=== PATIENT | male | born 1995 | race Caucasian/White ===

== ENCOUNTER 2017-01-01 01:34 | Emergency (ER) | payer OTHER ==
[~2017-01-01 01:34] MED LIST: AUGMENTIN PO; LINZESS290 MCG PO; MARY'S MAGIC MOUTH PO; MOTRIN400 MG PO; NO MEDICATIONS; NORCO1 TAB 10/3 PO; ROBAXIN PO
[2017-01-23] MEDS ORDERED: ASPIRIN81 MG PO (11:25)
== END 2017-01-01 03:15 | disposition home or self-care (01) ==
LOC: SED 01:34
DX: K56.41 Fecal impaction (principal)
CPT/HCPCS: 99283

== ENCOUNTER 2017-01-23 11:51 | Emergency (ER) | payer OTHER ==
--- NOTE | ~2017-01-23 | CT14 ---
[facility] A Service of [facility] & [facility] RADIOLOGY TEXT RESULTS PATIENT: HERMELINDA PHILLIPS LOCATION: SED : [birth year] UNIT #: [id number] AGE: [address]: Barry Valadez DO SEX: M ORDER DR: [id number] [place] [id number] E MR#: [id number] Acc #: [id number] NAME: HERMELINDA PHILLIPS : 1995 SEX: M STUDY DATE/TIME: 01/23/2017 12:59 UNIT: SED ROOM: STUDY DESCRIPTION: CT Angio Abdomen and Pelvis Attending Physician: Barry Valadez Referring Physician: Barry Valadez Ordering Physician: Barry Valadez Primary Care Physician: No Primary Care Physician MEDICAL IMAGING REPORT This report is preliminary unless electronic signature is present. EXAM CTA abdomen and pelvis 01/23/2017 Result text under order number ending [id number] CTA chest, abdomen and pelvis 01/23/2017. Please see this order for result text. Dictated by... Zia Elder M.D. THIS IS AN ELECTRONICALLY VERIFIED REPORT Zia Elder M.D. at 01/26/2017 8:07 AM Leonard TD: 01/23/2017 16:38 JOB #: [id number] MEDICAL IMAGING REPORT Page 1 of 1
--- NOTE | ~2017-01-23 | CT15 ---
[facility] A Service of [facility] RADIOLOGY TEXT RESULTS PATIENT: HERMELINDA PHILLIPS LOCATION: [facility] [place] : [birth year] UNIT #: [id number] AGE: [address]: Barry Valadez DO SEX: M ORDER DR: [id number] [place] [id number] E MR#: [id number] Acc #: [id number] NAME: HERMELINDA PHILLIPS : 1995 SEX: M STUDY DATE/TIME: 01/23/2017 12:42 UNIT: SED ROOM: STUDY DESCRIPTION: CT Angio Chest Attending Physician: Barry Valadez Referring Physician: Barry Valadez Ordering Physician: Barry Valadez Primary Care Physician: No Primary Care Physician MEDICAL IMAGING REPORT This report is preliminary unless electronic signature is present. EXAM CTA chest, abdomen and pelvis 01/23/2017 INDICATIONS Chest pain. Prior aortic stent placement. Midsternal chest pain for 7 days. Pseudoaneurysm of the aorta. TECHNIQUE CT angiography of the chest, abdomen and pelvis following administration of 100 mL Isovue-370 IV contrast. Coronal and sagittal 3-D MIP reconstructions were obtained. Volume rendered and curve planar reconstructions of the aorta and aortic vessels were also acquired. This CT exam was performed with one or more of the following radiation dose reduction techniques: automatic exposure control, adjustment of mA and/or kV according to patient size, and iterative reconstruction. COMPARISON CT chest 09/06/2016 FINDINGS AORTA: The thoracic aorta is normal in caliber. There is a endograft in the distal aortic arch and proximal descending thoracic aorta. No aortic aneurysm or dissection. The great vessels are all widely patent. The abdominal aorta is normal. 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 The SMA, CANDELARIA, and the renal arteries are widely patent. Both common iliac arteries, external iliac arteries, and the common femoral arteries are normal. CHEST: No pericardial or pleural effusion. No enlarged mediastinal or STS. [facility] A Service of [facility] RADIOLOGY TEXT RESULTS PATIENT: HERMELINDA PHILLIPS LOCATION: SED : [birth year] UNIT #: [id number] AGE: [address]: Barry Valadez DO SEX: M ORDER DR: hilar lymph nodes. Minimal soft tissue in the anterior mediastinum is compatible with residual thymus. No suspicious pulmonary findings. ABDOMEN: The solid abdominal organs are within normal limits on this early arterial phase imaging. There is a small volume of ascites in the right abdomen. The bowel is not dilated. Gallbladder is not distended. PELVIS: Bladder is unremarkable. No enlarged pelvic or inguinal lymph nodes. The appendix is normal. No acute osseous abnormalities. Old rib fractures are noted. IMPRESSION 1. No acute findings in the aorta. Patient has had prior endograft stent placement across the distal thoracic arch and the proximal descending thoracic aorta. No evidence of acute aneurysm or acute dissection. No endoleak. 2. Normal appearance of the abdominal aorta and pelvic vessels. 3. Small volume of fluid in the right abdomen is nonspecific and may simply be a physiologic. No etiology is identified to account for the fluid. Dictated by... Zia Elder M.D. THIS IS AN ELECTRONICALLY VERIFIED REPORT Zia Elder M.D. at 01/26/2017 8:07 AM BELLA/raoul TD: 01/23/2017 16:26 JOB #: [id number] MEDICAL IMAGING REPORT Page 1 of 1
--- NOTE | ~2017-01-23 | EKG ---
PATIENT: HERMELINDA PHILLIPS UNIT #: [id number] Ventricular Rate: 70 BPM Atrial Rate: 70 BPM P-R Interval: 130 ms QRS Duration: 86 ms Q-T Interval: 372 ms QTC Calculation(Bezet): 401 ms P [place]: 33 degrees Calculated R [place]: 84 degrees Calculated T [place]: 42 degrees Diagnosis Line: Normal sinus rhythm with sinus arrhythmia Diagnosis Line: Normal ECG Diagnosis Line: When compared with ECG of 13-APR-2015 22:45, Diagnosis Line: Vent. rate has decreased BY 82 BPM Diagnosis Line: T wave amplitude has decreased in Anterior leads Diagnosis Line: Nonspecific T wave abnormality no longer evident Diagnosis Line: in Lateral leads Diagnosis Line: Confirmed by SANA CARLTON MD ([id number]) on 01/29/2017 Diagnosis Line: 11:55:10 AM INTERPRETING MD: BRANDT ALEXANDRE
[~2017-01-23 11:51] MED LIST changes: +ASPIRIN81 MG PO
[2017-01-23 11:56] LABS: BASOPHIL% 0.6 % (0-2.5); DIFF IND NO; EOSINOPHIL# 0.2 X10e3 (0-0.7); EOSINOPHIL% 3.7 % (0.0-7.0); HEMATOCRIT 41.5 % (38.0-50.0); HEMOGLOBIN 14.3 gm/dL (13.0-16.0); LYMPHOCYTE# 1.5 X10e3 (1.0-3.5); LYMPHOCYTE% 36.3 % (17.0-45.0); MEAN CELL VOLUME 86.1 FL (83-96); MEAN CORPUSCULAR HEMOGLOBIN 29.7 PG (28-34); MEAN CORPUSCULAR HGB CONC 34.5 g/dL (30-36); MEAN PLATELET VOLUME 8.7 FL (6.5-11.5); MONOCYTE# 0.5 X10e3 (0-1.0); MONOCYTE% 11.5 % (3.0-12.0); NEUTROPHIL% 47.9 % (40-75); PLATELET COUNT 167 X10e3 (140-420); RED BLOOD COUNT 4.82 X10e (3.90-5.60); WHITE BLOOD COUNT 4.1 X10e3 (4.0-10.5)
[2017-01-23 12:01] LABS: POC - CKMB 1.1 ng/mL (0.0-7.9); POC - TROPONIN <0.05 ng/mL (<=0.05)
[2017-01-23 12:18] LABS: MICRO INDICATED? NO; URINE APPEARANCE CLEAR; URINE BILIRUBIN NEG (NEG); URINE BLOOD NEG (NEG); URINE COLOR YELLOW; URINE GLUCOSE NEG (NORM); URINE KETONE NEG (NEG); URINE LEUKOCYTE ESTERASE NEG (NEG); URINE NITRATE NEG (NEG); URINE PROTEIN NEG (NEG); URINE SOURCE CLEAN CATCH; URINE SPECIFIC GRAVITY >=1.030 (1.003-1.035); URINE UROBILINOGEN 0.2 MG/DL (NORM)
[2017-01-23 12:22] LABS: ALBUMIN SERUM 4.2 g/dL (3.5-5.0); BILIRUBIN, DIRECT 0.1 mg/dL (0.0-0.2); BILIRUBIN,INDIRECT 0.4 mg/dL (0.0-0.9); BILIRUBIN,TOTAL 0.5 mg/dL (0.2-2.0); CALCIUM SERUM 9.3 mg/dL (8.4-10.2); GLOM FILT RATE Estimated 107.9 mL/min (>60); INR 1.2; POTASSIUM 3.5 mmol/L (3.5-5.1); PROTEIN TOTAL SERUM 7.2 g/dL (6.0-8.3); PROTHROMBIN TIME (PATIENT) 13.2 SECONDS (9.5-12.4)
[2017-01-23 12:29] LABS: AMPHETAMINE NEG (NEG); BARBITURATES NEG (NEG); BENZODIAZEPINES NEG (NEG); COCAINE POS (NEG); MARIJUANA POS (NEG); OPIATES POS (NEG); TRICYCLIC ANTIDEPRESSANTS NEG (NEG); U METHADONE NEG (NEG)
[2017-01-23 12:30] LABS: PARTIAL THROMBOPLASTIN TIME 28.9 SECONDS (25.6-38.1)
== END 2017-01-23 15:07 | disposition home or self-care (01) ==
LOC: SED 11:51
PROVIDERS: Emergency Medicine
DX: F14.10 Cocaine abuse, uncomplicated (principal); R07.9 Chest pain, unspecified; F17.210 Nicotine dependence, cigarettes, uncomplicated; Z79.82 Long term (current) use of aspirin
CPT/HCPCS: 36415; 71275; 74174; 80048; 80076; 80307; 81003; 82553; 84484; 85025; 85610; 85730; 93005; 99284; Q9967

== ENCOUNTER 2017-02-13 16:49 | Emergency (ER) | payer OTHER ==
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
== END 2017-02-13 18:18 | disposition home or self-care (01) ==
LOC: SED 16:49
DX: G89.29 Other chronic pain (principal); M54.2 Cervicalgia; M54.6 Pain in thoracic spine; Z79.82 Long term (current) use of aspirin
CPT/HCPCS: 72040; 72070; 96372; 99283

== ENCOUNTER 2017-02-16 17:21 | Emergency (ER) | payer OTHER ==
[2017-02-16] MEDS ORDERED: ROBAXIN (17:35)
== END 2017-02-16 19:18 | disposition home or self-care (01) ==
LOC: SED 17:21
DX: G89.29 Other chronic pain (principal); M54.6 Pain in thoracic spine
CPT/HCPCS: 96372; 99283; J1885